=== PATIENT | male | born 1950 | race Caucasian/White ===

== ENCOUNTER 2017-11-23 07:23 | Day surgery (SDC) | payer OTHER ==
[2017-11-23] MEDS ORDERED: NS 500 ML IV 500 ML IV ONE (07:52)
[2017-11-23] MEDS ORDERED: TETRACAINE 0.5% OPHTH 1 DOSE AFFEYE ONE ×2 (08:00→09:40)
[2017-11-23] MEDS ORDERED: VIGAMOX 0.5% OPHTH 1 DOSE AFFEYE ONE ×6 (08:01→10:00)
[2017-11-23] MEDS ORDERED: PROLENSA OPHTH 1 DOSE AFFEYE ONE (08:13)
[2017-11-23] MEDS ORDERED: ALPHAGAN-P OPHTH 1 DOSE AFFEYE ONE (08:14)
[2017-11-23] MEDS ORDERED: CYCLOGYL 1% OPHTH 1 DOSE OP ONE ×3 (08:15→08:17)
[2017-11-23] MEDS ORDERED: MYDRIACIL OPHTH 1 DOSE AFFEYE ONE ×3 (08:15→08:17)
[2017-11-23] MEDS ORDERED: AK-DILATE 2.5% OPHTH 1 DOSE OP ONE ×3 (08:15→08:17)
[2017-11-23] MEDS ORDERED: BETADINE OPHTH SOLN 5% EACHEYE ONE (09:35)
[2017-11-23] MEDS ORDERED: ADRENALINE CHL INJ IJ ONE (09:48)
[2017-11-23] MEDS ORDERED: XYLOCAINE-MPF 1% IJ ONE (09:48)
[2017-11-23] MEDS ORDERED: DUOVISC IO ONE (09:48)
[2017-11-23] MEDS ORDERED: BSS OPHTH (PLAIN) 500 ML with VANCOMYCIN HCL 500 MG VIAL 25 MG, ADRENALINE CHL INJ 1 MG IR ONE ×3 (09:48)
[2017-11-23 14:11] VITALS: BP 133/73
[2017-11-23] MEDS ORDERED: DIPRIVAN VIAL ONE (15:59)
== END 2017-11-23 10:25 | disposition home or self-care (01) ==
LOC: SURG1 07:23 → EDSEX 07:30 → SURG1 10:25
PROVIDERS: ATTEND Ophthalmology
PROC: 08DJ3ZZ Extraction of Right Lens, Percutaneous Approach (ICD-10-PCS; principal; 2017-11-23 07:30)
PROC: 08RJ3JZ Replacement of Right Lens with Synthetic Substitute, Percutaneous Approach (ICD-10-PCS; principal; 2017-11-23 07:30)
DX: H25.11 Age-related nuclear cataract, right eye (principal); H25.011 Cortical age-related cataract, right eye; H52.221 Regular astigmatism, right eye
CPT/HCPCS: A4217; J0170; J3370; J3490

== ENCOUNTER 2017-12-14 07:48 | Day surgery (SDC) | payer OTHER ==
[2017-12-14] MEDS ORDERED: TETRACAINE 0.5% OPHTH 1 DOSE AFFEYE ONE ×3 (08:04→10:26)
[2017-12-14] MEDS ORDERED: VIGAMOX 0.5% OPHTH 1 DOSE AFFEYE ONE ×5 (08:05→10:40)
[2017-12-14] MEDS ORDERED: PROLENSA OPHTH 1 DOSE AFFEYE ONE (08:17)
[2017-12-14] MEDS ORDERED: ALPHAGAN-P OPHTH 1 DOSE AFFEYE ONE (08:19)
[2017-12-14] MEDS ORDERED: CYCLOGYL 1% OPHTH 1 DOSE OP ONE ×4 (08:20→08:30)
[2017-12-14] MEDS ORDERED: AK-DILATE 2.5% OPHTH 1 DOSE OP ONE ×4 (08:20→08:30)
[2017-12-14] MEDS ORDERED: MYDRIACIL OPHTH 1 DOSE AFFEYE ONE ×4 (08:20→08:30)
[2017-12-14] MEDS ORDERED: NS 500 ML IV 500 ML IV ONE (08:34)
[2017-12-14] MEDS ORDERED: BETADINE OPHTH SOLN 5% EACHEYE ONE (10:20)
[2017-12-14] MEDS ORDERED: ADRENALINE CHL INJ IJ ONE (10:26)
[2017-12-14] MEDS ORDERED: DUOVISC IO ONE ×2 (10:26→10:33)
[2017-12-14] MEDS ORDERED: BSS OPHTH (PLAIN) 500 ML with VANCOMYCIN HCL 500 MG VIAL 25 MG, ADRENALINE CHL INJ 1 MG IR ONE ×3 (10:26)
[2017-12-14] MEDS ORDERED: XYLOCAINE-MPF 1% IJ ONE ×2 (10:26→10:33)
[2017-12-14 10:58] VITALS: BP 102/70
== END 2017-12-14 11:03 | disposition home or self-care (01) ==
LOC: SURG1 07:48
PROVIDERS: ATTEND Ophthalmology
PROC: 08DK3ZZ Extraction of Left Lens, Percutaneous Approach (ICD-10-PCS; principal; 2017-12-14 12:45)
PROC: 08RK3JZ Replacement of Left Lens with Synthetic Substitute, Percutaneous Approach (ICD-10-PCS; principal; 2017-12-14 12:45)
DX: H25.12 Age-related nuclear cataract, left eye (principal); H25.012 Cortical age-related cataract, left eye; H52.222 Regular astigmatism, left eye
CPT/HCPCS: A4217; J0170; J3370